=== PATIENT | male | born 1990 | race Hispanic/Latino ===

== ENCOUNTER 2016-12-07 21:18 | Emergency (ER) | payer SELFPAY ==
[2016-12-07 21:28] VITALS: BP 139/79; PULSE 88; O2SAT 99
--- NOTE | 2016-12-07 21:37 | ERPHSYRPT ---
- History of Present Illness Time Seen by Provider: 12/07/16 21:32 Source: police Exam Limitations: intoxication Patient Subjective Stated Complaint: BROUGHT IN PER POLICE OFFICERS PER ERRATIC DRIVING - NOTED PER OFFICERS THAT PT HAS ETOH AT PBT OF 0.267 - TOED PER EVALUATION ET CLEARING FOR [facility] Triage Nursing Assessment: AMBULATORY TO TREATMENT AREA - STEADY GAIT - MOVES ALL EXTREMITIES WITH EQUAL STRENGTH. ALERT - DOES NOT SPEAK [place] - ODOR OF ETOH. RESPS EASY - NON-LABORED. SKIN PWD - NO RASH/INJURY Physician History: The patient is a 26-year-old male brought in by police stating that he needs to be medically cleared before going to long-term for an alcohol level of 0.276. He was picked up because of erratic driving. The patient states he is in no pain. He answers questions appropriately although his Nauruan is not as good as a jena Nauruan speaker. Timing/Duration: hour(s) (1) Severity: moderate Modifying Factors: Improves With: nothing Associated Symptoms: denies symptoms - Review of Systems Constitutional: No Fever, No Chills Eyes: No Symptoms Ears, Nose, & Throat: No Symptoms Respiratory: No Cough, No Dyspnea Cardiac: No Chest Pain, No Edema, No Syncope Abdominal/Gastrointestinal: No Abdominal Pain, No Nausea, No Vomiting, No Diarrhea Genitourinary Symptoms: No Dysuria Musculoskeletal: No Back Pain, No Neck Pain Skin: No Rash Neurological: No Dizziness, No Focal Weakness, No Sensory Changes Psychological: Alcohol Abuse Endocrine: No Symptoms Hematologic/Lymphatic: No Symptoms Immunological/Allergic: No Symptoms All Other Systems: Reviewed and Negative - Social History Smoking Status: Unknown if ever smoked Patient Lives Alone: No - Nursing Vital Signs Nursing Vital Signs: Initial Vital Signs Temperature 97.9 F Temperature Source Oral Pulse Rate 88 Respiratory Rate 14 Blood Pressure [Right Arm] 139/79 Pain Intensity 0 - Physical Exam General Appearance: no apparent distress, alert Eye Exam: PERRL/EOMI, eyes nml inspection Ears, Nose, Throat Exam: normal ENT inspection, TMs normal, pharynx normal, moist mucous membranes Neck Exam: normal inspection, non-tender, supple, full range of motion Respiratory Exam: normal breath sounds, lungs clear, No respiratory distress Cardiovascular Exam: regular rate/rhythm, normal heart sounds, normal peripheral pulses Gastrointestinal/Abdomen Exam: soft, normal bowel sounds, No tenderness, No mass Rectal Exam: not done Back Exam: normal inspection, normal range of motion, No CVA tenderness, No vertebral tenderness Extremity Exam: normal inspection, normal range of motion, pelvis stable Neurologic Exam: alert, cooperative, intoxicated appearance Skin Exam: normal color, warm, dry, No rash Lymphatic Exam: adenopathy SpO2 Interpretation: normal SpO2: 99 - Progress Progress: unchanged Counseled pt/family regarding: diagnosis - Departure Time of Disposition: 21:36 Departure Disposition: Assisted/Intermediate Clinical Impression: Alcohol intoxication Condition: Stable Critical Care Time: No
== END 2016-12-07 22:04 | disposition home or self-care (01) ==
LOC: ED 21:18
DX: F10.129 Alcohol abuse with intoxication, unspecified (principal)
CPT/HCPCS: 36415; 99283; G0481